=== PATIENT | female | born 2000 | race Caucasian/White ===

== ENCOUNTER 2020-07-20 13:42 | Emergency (ER) | payer SELFPAY ==
[~2020-07-20] VITALS: Ht 157.5 cm; Wt 62.6 kg
[2020-07-20 13:59] VITALS: BP 111/71
--- NOTE | 2020-07-20 14:00 | NUR ---
Patient ambulated to bed 6 with steady/even gait.
--- NOTE | 2020-07-20 14:05 | NUR ---
Urine sample collected, walked to lab, handed to brant Lara tech.
--- NOTE | 2020-07-20 14:13 | NUR ---
DANA Huber is evaluating patient at bedside.
--- NOTE | 2020-07-20 14:14 | NUR ---
Efraín aponte in [facility] - 07/20/20 at 1513 by [email or web address] Female Elementary Assistant Teacher accompanied female patient for Pelvic Exam.
[2020-07-20 14:43] LABS: APPEARANCE,URINE HAZY (CLEAR); BILIRUBIN,URINE NEGATIVE (NEGATIVE); BLOOD, URINE NEGATIVE (NEGATIVE); COLOR,URINE YELLOW (YELLOW); LEUKOCYTE ESTERASE ,URINE NEGATIVE (NEGATIVE); NITRITE, URINE NEGATIVE (NEGATIVE); UGLUCOSE NEGATIVE (NEGATIVE)
--- NOTE | 2020-07-20 14:52 | NUR ---
Female Health Safety Specialist accompanied female patient for Pelvic Exam.
--- NOTE | 2020-07-20 15:00 | NUR ---
20 y/o F coming in from home c/o vaginal discomfort. Patient states vaginal discomfort x 3 months and came in today for evaluation. Patient states perineal pain, 10/10, burning/intermittent, non-radiating pain with associated dysuria and itching. Pt denies nausea, vomiting, diarrhea, fever/chills, SOB. Pt denies taking any medication prior to arrival. Pt states LMP one week ago. Pt placed onto blood pressure cuff, pulse ox. Bed locked in lowest position, side rails x 1. PMH/Meds: Denies NKA
--- NOTE | 2020-07-20 15:01 | NUR ---
Adrián Huber collected specimens, walked to lab.
--- NOTE | 2020-07-20 15:23 | NUR ---
Patient resting in position of comfort; semi-fowlers position. Pt on blood pressure cuff/pulse ox. Respirations even/unlabored. Bed locked in lowest position, side rails x 1, call light in reach.
--- NOTE | 2020-07-20 15:45 | NUR ---
DANA Huber is reevaluating patient at bedside.
[2020-07-20] MEDS ORDERED: IMIQ5CRE TP (15:46)
[2020-07-20 15:58] VITALS: BP 109/72
--- NOTE | 2020-07-20 15:58 | NUR ---
Patient discharged with v/s stable. Written and verbal after care instructions given and explained. Patient alert, oriented and verbalized understanding of instructions. Ambulatory with steady gait. All questions addressed prior to discharge. ID band removed. Patient advised to follow up with PMD. Rx of imiquimod 1 each cream topically for infection for 90days. given. Patient educated on indication of medication including possible reaction and side effects. Opportunity to ask questions provided and answered.
== END 2020-07-20 15:58 | disposition home or self-care (01) ==
LOC: MED 13:42
DX: B07.9 Viral wart, unspecified (principal); Z79.899 Other long term (current) drug therapy
CPT/HCPCS: 36415; 81003; 81025; 87210; 87491; 99283